=== PATIENT | male | born 1970 | race Hispanic/Latino ===

== ENCOUNTER 2018-04-19 09:44 | Emergency (ER) | payer SELFPAY ==
[2018-04-19 10:21] LABS: #Lymphocytes 1.5 thou/uL (1.20-3.40); #Monocytes 0.5 thou/uL (0.11-0.59); #Neutrophils 16.2 thou/uL (1.40-6.50); %Basophils 0.1 % (0.0-1.0); %Eosinophils 0.1 % (0.0-10.0); %Lymphocytes 8.1 % (21.0-51.0); %Monocytes 2.7 % (0.0-10.0); %Neutrophils 88.9 % (42.0-75.0); Hemoglobin 15.8 g/dL (14.0-18.0); Mean Corpuscular HGB CONC 34.8 g/dL (32.0-36.0); Mean Corpuscular Hemoglobin 31.1 pg (27.0-31.0); Mean Corpuscular Volume 89.3 fL (78.0-98.0); Mean Platelet Volume 8.7 fL (7.4-10.4); Platelet Count 193 thou/uL (130-400); RBC Distribution Width 11.7 % (11.5-14.5); Red Blood Cell (RBC) Count 5.09 mill/uL (4.70-6.10); White Blood Cell (WBC) Count 18.2 thou/uL (4.8-10.8)
[2018-04-19 10:28] LABS: PTT 27.6 SEC (22.9-36.1); Prothrombin Time 13.8 SEC (12.0-14.7)
[2018-04-19] MEDS ORDERED: Lidocaine 1% PF 5 ML VIAL ONE (10:28)
[2018-04-19 10:42] LABS: ALT (SGPT) 42 U/L (8-55); AST (SGOT) 25 U/L (5-34); Albumin 3.8 g/dL (3.5-5.0); Alkaline Phosphatase 83 U/L (40-150); Anion Gap 13 mmol/L (10-20); BUN (Urea Nitrogen) 10 mg/dL (8.9-20.6); Bilirubin, Total 0.5 mg/dL (0.2-1.2); Calc. Creatinine Clearance 0 mL/min (70-130); Calcium 8.3 mg/dL (7.8-10.44); Carbon Dioxide 20 mmol/L (22-29); Chloride 108 mmol/L (98-107); Estimated GFR-MDRD 86; Globulin 3.2 g/dL (2.4-3.5); Glucose 331 mg/dL (70-105); Potassium 3.5 mmol/L (3.5-5.1); Sodium 137 mmol/L (136-145)
--- NOTE | 2018-04-19 11:46 | CON ---
DATE OF CONSULTATION: 04/19/2018 CHIEF COMPLAINT: Left hand injury. HISTORY OF PRESENT ILLNESS: Mr. Cordell Kellogg is a 48-year-old male who injured his left index fi nger in a machine at work today. He had a laceration through the DIP joint. He has some bleeding at the scene. He presented to the emergency department for evaluation. Orthopedics was consulted to e valuate the injury and give recommendations for treatment. He is currently comfortable. He has had a digital block previously. PAST MEDICAL HISTORY: Negative. PAST SURGICAL HISTORY: Negative. ALLERGIES: No known drug allergies. MEDICATIONS: No active medications. FAMILY MEDICAL HISTORY: Noncontributory. PHYSICAL EXAMINATION: VITAL SIGNS: Blood pressure is 103/73, pulse is 82, temperature is afebrile. GENERAL: He is alert and oriented, sitting upright, in no apparent distress. MUSCULOSKELETAL: The patient's left hand has a deep laceration through the DIP joint of the index fi nger. The joint surfaces exposed. He has disruption of the extensor tendon dorsally. He also has a small fracture fragment at the base of the phalanx. He has had a digital block, so neurological exa m cannot be obtained. He does have a warm and well perfused distal fingertip. IMAGES: X-rays demonstrate a minimally displaced minimally displaced fracture of the distal phalanx at the proximal aspect. There is subluxation of the DIP joint. IMPRESSION: Distal interphalangeal joint laceration with distal phalanx fracture. PLAN: At this point, the patient will need a thorough irrigation of the wound. I recommended Betadi ne lavage. Once he has a clean wound, he can have sutures to repair the dorsal tissues. This will h elp splint the finger and reduced the joint. He needs a loose closure. He should be discharged on o ral antibiotics. He should have a splint placed. He should follow up in my clinic in approximately 7-10 days for repeat evaluation.
== END 2018-04-19 11:43 | disposition home or self-care (01) ==
LOC: ERS 09:44
DX: S61.211A Laceration without foreign body of left index finger without damage to nail, initial encounter (principal); W31.89XA Contact with other specified machinery, initial encounter
CPT/HCPCS: 12002; 26750; 36415; 80053; 85025; 85610; 85730; 86850; 86900; 86901; J2001